=== PATIENT | female | born 1950 | race Caucasian/White ===

== ENCOUNTER 2018-08-21 13:39 | Outpatient (CLI) | payer MEDICARE ==
--- NOTE | 2018-08-21 15:24 | RAD ---
SUPINE AND UPRIGHT VIEWS ABDOMEN: HISTORY: Patient who swallowed a dental implant. TECHNIQUE: AP view abdomen is obtained. FINDINGS: No evidence of radiopaque foreign body seen to suggest metallic density material. If the implant was epoxy or other carbon-based material, it may not be radiographically visible, unless it contains a c ertain amount of metal. No evidence of obstruction seen. No dilated loops of bowel seen. IMPRESSION: Unremarkable supine and upright views of abdomen. POS: [facility]
--- NOTE | 2018-08-21 15:37 | RAD ---
CHEST PA AND LATERAL: HISTORY: A 67-year-old female with concern for foreign body. There appears to be some pectus juan luis deformity of the upper chest. Heart size is normal. The lungs are clear. There is normal symmetric aeration . No evidence for a metal or abnormal opaque foreign body. IMPRESSION: Unremarkable 2 view chest. No evidence for an aspirated or swallowed foreign body in the chest. POS: [facility]
== END 2018-08-21 13:40 | disposition home or self-care (01) ==
LOC: BICRAD 13:39
PROVIDERS: ATTEND Dentist Oral and Maxillofacial Surgery
DX: Z03.89 Encounter for observation for other suspected diseases and conditions ruled out (principal)
CPT/HCPCS: 71046; 74022